=== PATIENT | female | born 1965 | race Caucasian/White ===

== ENCOUNTER 2023-09-15 08:10 | Outpatient (AMB) | payer OTHER, SELFPAY ==
--- NOTE | 2023-09-15 08:59 | AM.OFFWIN_ITS ---
Intake Vital Signs 09/15/23 09:07 Height 5 ft 7 in Weight 205 lb BMI 32.1 BP 140/70 H Blood Pressure Location Lt brachial Position Sitting Pulse 86 Pulse Source Pulse Oximeter Temp 97.0 F Temp Source Temporal Artery Scan Pulse Oximetry (%) 99 Oxygen Delivery Method Room Air Intake Visit Reasons: [employer]CH[employer]ICIAN/cough and losing voice/[id number] Intake Note: pt is here today for cough and losing voice and started 2 weeks ago Patient Tobacco Use Status: Never used Tobacco Allergies No Known Allergies Allergy (Verified 09/15/23 09:01) Do you need a note to return to daycare/school/sports/work: No HPI HPI Comments History of Present Illness Details This is a 58-year-old female with no stated past medical history presenting for evaluation of sinus congestion and a nocturnal cough that she has had over the past 7-10 days. Patient states that 2 days ago she became hoarse and describes her throat as ?itchy?. Patient denies having any fevers, chills, ear pain or shortness of breath. Patient has been taking Mucinex daily for relief of her symptoms. Patient denies having any recent sick contacts. [facility] Social History Patient Tobacco Use Status: Never used Tobacco Review of Systems Const Denies chills, Denies fatigue, Denies fever(s) and Denies malaise Eyes Reports as per HPI ENT Denies otalgia, Denies sinus pain, Denies sore throat (throat is itchy ) and Denies throat swelling Card Reports as per HPI and Denies dyspnea Resp Reports as per HPI, Reports cough (primarily nocturnal) and Denies dyspnea GI Reports no additional complaints Endo Reports no additional complaints and Denies fatigue Aller/Immun Denies throat swelling Physical Exam Patient is afebrile. Const General: cooperative, healthy appearing, comfortable and no acute distress Nutritional Appearance: average body habitus Orientation/consciousness: patient oriented x3 Limitations: no limitations HEENT Head: Yes normal to inspection Ears: hearing grossly normal bilaterally, external ears normal, TM's normal bilaterally and EAC's normal General nose exam: Normal external nose present Face and sinus: Yes normal facial exam and No sinus tenderness Mouth: Normal oral and palatal mucosa present Teeth and gingiva: dentition normal Throat: Yes posterior oropharynx normal Eyes General: appearance normal, both eyes and all related structures Conjunctivae: conjunctivae normal Pupils: Equal, round and reactive pupils present EOM: EOMs intact bilaterally Neck Lymphatic: no lymphadenopathy noted Resp Effort & Inspection: normal respiratory effort, able to speak in complete sentences and no respiratory distress Auscultation: clear to auscultation bilaterally Cardio Rate: regular rate Rhythm: regular rhythm Skin General skin exam: no rashes or lesions noted Neuro General: patient oriented x3 Cranial nerves: Yes Equal, round and reactive pupils present Psych Appearance: grossly normal Mental Status: mental status grossly normal Insight: Good insight present (Psych) Judgement: Good judgement present (Psych) Assessment & Plan Assessment & Plan (1) Upper respiratory infection: Code(s): J06.9 - Acute upper respiratory infection, unspecified Plan: Tessalon perles TID prn cough, continue Mucinex, increase clear fluids daily. Medications: New benzonatate 100 mg PO TID 20 caps 0RF Coding Level of Care Code New Pt Level 3 (83844) Diagnoses Upper respiratory infection J06.9 Time Spent (min) 20
[2023-09-15 09:07] VITALS: BP 140/70; PULSE 86; TEMP 36.1; O2SAT 99; BMI 32.1
== END 2023-09-15 09:23 | disposition home or self-care (01) ==
PROVIDERS: PCP Internal Medicine; Visit Provider Physician Assistant
DX: J06.9 Acute upper respiratory infection, unspecified (principal)
CPT/HCPCS: 99203